=== PATIENT | male | born 1940 | race Caucasian/White ===

== ENCOUNTER 2018-08-08 09:08 | Day surgery (SDC) | payer MEDICARE, OTHER ==
[~2018-08-08 09:08] MED LIST: CHONDR SU A NA/HYALUR INTRAOC KIT (SURGICARE) ONE; EPINEPHRINE INJ/PF 1 MG/1 ML AMPULE ONE; KETOROLAC TROMETHAMINE 0.45% 4 DROP/0.4 ML DROPERETTE OD PRN; LIDOCAINE 1% INJ-PF (10 MG/ML) 30 ML SDV ONE
[2018-08-08] MEDS: TETRACAINE HCL 0.5% OPH SOLN 4 ML OD PRN ×3 (09:55→10:32)
[2018-08-08] MEDS: TROPICAMIDE 1% OPH SOLN 3 ML OD PRN ×3 (09:55→10:20)
[2018-08-08] MEDS: CYCLOPENTOLATE 0.2%/PHENYLEPHRINE 1% OPH SOLN 2 ML OD PRN ×3 (09:55→10:20)
[2018-08-08] MEDS: BESIFLOXACIN HCL 0.6% OPH SUSP 5 ML BOTTLE OD PRN ×3 (09:55→10:56)
[2018-08-08] MEDS ORDERED: FENTANYL CITRATE INJ/PF 100 MCG/2 ML AMPUL ONE (10:37)
[2018-08-08] MEDS ORDERED: MIDAZOLAM 2 MG/2 ML INJ ONE (10:37)
--- NOTE | 2018-08-08 13:50 | [facility] OPERATIVE REPORT E ---
[facility] Operative Report NAME: MURTAZA OBREGON AGE: 77Y DATE OF SURGERY: 08/08/2018 ROOM: PREOPERATIVE DIAGNOSIS: CATARACT, RIGHT EYE POSTOPERATIVE DIAGNOSIS: CATARACT, RIGHT EYE. OPERATION: Cataract extraction with insertion of an IOL of the right eye. SURGEON: GAUDENCIO LANDON M.D. ANESTHESIA: Topical. PROCEDURE: After obtaining appropriate consent, the patient's eye was prepped and draped in sterile fashion as well as the surgeon in a sterile manner and cataract surgery was started. First a paracentesis blade was used to make a side-port incision. Viscoelastic was used to inflate the anterior chamber. Next a 2.4 mm incision was made with a 2.4 mm blade, clear corneal temporally. A continuous capsulorrhexis was made using a cystotome and Utrata forceps. Following this hydrodissection was carried out to make the lens fully loose and mobile and it was rotated 90 degrees. Following this, a gvlljg-spd-autgkfb technique was used to phacoemulsify the lens with a CDE of 6.43. The remaining cortex was removed with irrigation/aspiration. Provisc was instilled into the capsular bag to inflate the bag. A SN60WF, 18.5 diopter lens was placed. The remaining viscoelastic material was removed with irrigation/aspiration. Following this, the incision was found to be watertight. Besivance was instilled into the eye and a protective shield was placed over the eye. The patient returned to the postoperative recovery in stable condition. DICTATING PHYSICIAN: GAUDENCIO LANDON M.D. [id number] PHY#: [id number] ID: [id number] JOB#: [id number] ACCT: [id number] cc:GAUDENCIO LANDON M.D. >
--- NOTE | 2018-08-08 14:01 | [facility] DISCHARGE SUMMARY E ---
[facility] Discharge Summary NAME: MURTAZA OBREGON AGE: 77Y ADMITTED: 08/08/2018 DISCHARGED: 08/08/2018 HOSPITAL COURSE: This is a 77-year-old female who underwent cataract extract right eye. They underwent surgery because of having difficulty driving at night secondary to glare from the light. FINAL DIAGNOSIS: CATARACT, RIGHT EYE. DISCHARGE DIAGNOSES: The patient should be on a regular diet. No bending at the waist. No heavy lifting. They should use her Besivance, Ilevro, and Durezol at 3 p.m. and 8 p.m., and sleep with a rigid shield, and I will see her in one day for postoperative. DICTATING PHYSICIAN: GAUDENCIO LANDON M.D. [id number] PHY#: [id number] ID: [id number] JOB#: [id number] ACCT: [id number] cc:GAUDENCIO LANDON M.D. >
== END 2018-08-08 11:41 | disposition home or self-care (01) ==
LOC: SC 09:08
PROVIDERS: ATTEND Internal Medicine
DX: H25.813 Combined forms of age-related cataract, bilateral (principal); M19.90 Unspecified osteoarthritis, unspecified site; E78.00 Pure hypercholesterolemia, unspecified; K21.9 Gastro-esophageal reflux disease without esophagitis; M10.9 Gout, unspecified; Z87.891 Personal history of nicotine dependence; Z79.899 Other long term (current) drug therapy
CPT/HCPCS: 66984; V2632; J2250; J3490 ×3; A9270; J0171; J3010; 142

== ENCOUNTER 2018-08-24 06:40 | Day surgery (SDC) | payer MEDICARE, OTHER ==
[~2018-08-24 06:40] MED LIST changes: -CHONDR SU A NA/HYALUR INTRAOC KIT (SURGICARE) ONE; -EPINEPHRINE INJ/PF 1 MG/1 ML AMPULE ONE; -KETOROLAC TROMETHAMINE 0.45% 4 DROP/0.4 ML DROPERETTE OD PRN; +KETOROLAC TROMETHAMINE 0.45% 4 DROP/0.4 ML DROPERETTE OS PRN; -LIDOCAINE 1% INJ-PF (10 MG/ML) 30 ML SDV ONE
[2018-08-24] MEDS ORDERED: MIDAZOLAM 2 MG/2 ML INJ ONE (06:54)
[2018-08-24] MEDS ORDERED: FENTANYL CITRATE INJ/PF 100 MCG/2 ML AMPUL ONE (06:54)
[2018-08-24] MEDS: TETRACAINE HCL 0.5% OPH SOLN 4 ML OS PRN ×2 (06:58→07:51)
[2018-08-24] MEDS: CYCLOPENTOLATE 0.2%/PHENYLEPHRINE 1% OPH SOLN 2 ML OS PRN ×3 (06:58→07:11)
[2018-08-24] MEDS: TROPICAMIDE 1% OPH SOLN 3 ML OS PRN ×3 (06:58→07:11)
[2018-08-24] MEDS: BESIFLOXACIN HCL 0.6% OPH SUSP 5 ML BOTTLE OS PRN ×4 (06:58→08:32)
[2018-08-24] MEDS ORDERED: LIDOCAINE 1% INJ-PF (10 MG/ML) 30 ML SDV ONE (07:12)
[2018-08-24] MEDS ORDERED: CHONDR SU A NA/HYALUR INTRAOC KIT (SURGICARE) ONE (07:12)
[2018-08-24] MEDS ORDERED: EPINEPHRINE INJ/PF 1 MG/1 ML AMPULE ONE (07:12)
[2018-08-24] MEDS ORDERED: TETRACAINE HCL 0.5% OPH SOLN 4 ML OP ONE ×2 (07:56→08:03)
[2018-08-24] MEDS ORDERED: CHONDR SU A NA/HYALUR SOD INTRAOCULAR SYSTEM 1 KIT IO ONE (08:03)
[2018-08-24] MEDS ORDERED: EPINEPHRINE INJ/PF 1 MG/1 ML AMPULE IR ONE (08:03)
--- NOTE | 2018-08-24 15:26 | [facility] OPERATIVE REPORT E ---
[facility] Operative Report NAME: MURTAZA OBREGON AGE: 77Y DATE OF SURGERY: 08/24/2018 ROOM: PREOPERATIVE DIAGNOSIS: CATARACT, LEFT EYE. POSTOPERATIVE DIAGNOSIS: CATARACT, LEFT EYE. OPERATION: Cataract extraction with insertion of an IOL of the left eye. SURGEON: GAUDENCIO LANDON M.D. ANESTHESIA: Topical. PROCEDURE: After obtaining appropriate consent, the patient's left eye was prepped and draped in sterile fashion as well as the surgeon in a sterile manner and cataract surgery was started. First a paracentesis blade was used to make a side-port incision. Viscoelastic was used to inflate the anterior chamber. Next a 2.4 mm incision was made with a 2.4 mm blade, clear corneal temporally. A continuous capsulorrhexis was made using a cystotome and Utrata forceps. Following this hydrodissection was carried out to make the lens fully loose and mobile and it was rotated 90 degrees. Following this, a huokkc-zuy-qhiicrc technique was used to phacoemulsify the lens with a CDE of 6.8. The remaining cortex was removed with irrigation/aspiration. Provisc was instilled into the capsular bag to inflate the bag. A SN60WF, 19.0 diopter lens was placed. The remaining viscoelastic material was removed with irrigation/aspiration. Following this, the incision was found to be watertight. Besivance was instilled into the eye and a protective shield was placed over the eye. The patient returned to the postoperative recovery in stable condition. DICTATING PHYSICIAN: GAUDENCIO LANDON M.D. [id number] PHY#: [id number] ID: [id number] JOB#: [id number] ACCT: [id number] cc:GAUDENCIO LANDON M.D. >
--- NOTE | 2018-08-24 15:27 | [facility] DISCHARGE SUMMARY E ---
[facility] Discharge Summary NAME: MURTAZA OBREGON AGE: 77Y ADMITTED: 08/24/2018 DISCHARGED: 08/24/2018 HOSPITAL COURSE: This is a 85-rm[age]-old male who underwent cataract extraction of the left eye. DIAGNOSIS: Cataract, left eye. The patient underwent surgery because he was having difficulty reading road signs and words on the television. DISCHARGE INSTRUCTIONS: The patient is to be on a regular diet. No bending at the waist, no heavy lifting. He is to use his Besivance, Ilevro, and Durezol at 3:00 p.m. and 8:00 p.m., and sleep with a rigid shield. I will see him for a 1 day postoperative tomorrow. DICTATING PHYSICIAN: GAUDENCIO LANDON M.D. [id number] PHY#: [id number] ID: [id number] JOB#: [id number] ACCT: [id number] cc:GAUDENCIO LANDON M.D. >
== END 2018-08-24 08:51 | disposition home or self-care (01) ==
LOC: SC 06:40
PROVIDERS: ATTEND Internal Medicine
DX: H25.813 Combined forms of age-related cataract, bilateral (principal); E78.00 Pure hypercholesterolemia, unspecified; M19.90 Unspecified osteoarthritis, unspecified site; K21.9 Gastro-esophageal reflux disease without esophagitis; F17.290 Nicotine dependence, other tobacco product, uncomplicated; M10.9 Gout, unspecified; Z87.891 Personal history of nicotine dependence; Z79.899 Other long term (current) drug therapy
CPT/HCPCS: 66984; V2632; J2250; J3490 ×3; A9270; J0171; J3010; 142